=== PATIENT | female | born 1995 | race Caucasian/White ===

== ENCOUNTER 2016-11-30 12:18 | Emergency (ER) | payer OTHER ==
[~2016-11-30] VITALS: Ht 170.2 cm; Wt 95.7 kg
[~2016-11-30 12:18] MED LIST: ATIVAN0.5 MG PO; Augmentin PO; BACTRIM,SEPT1 TABLET PO; CIPRO250 MG PO; CIPRO500 MG PO; CITALOPRAM HBR20 MG PO; DICLEGIS DR 101 EACH PO; K-DUR20 MEQ PO; KEFLEX500 MG PO; LABETALOL HCL200 MG PO; MACROBID100 MG PO; METOCLOPRAM5 MG/1 M1 PO; NAPROSYN500 MG PO; NEXIUM20 MG PO; NEXIUM40 MG PO; NORCO 5/3251 TABLET PO; PERCOCET 5/31 TABLET PO; PHENERGAN25 MG PR; PREDNISONE20 MG PO; PRENATAL TABLE1 EAC3 PO; PROMETHAZINE HC25 M1 PO; PROTONIX IV40 MG PO; PYRIDIUM200 MG PO; RANITIDINE HCL150 MG PO; REGLAN10 MG PO; REGLAN5 MG PO; ZITHROMAX Z-PA250 MG PO; ZOFRAN ODT4 MG PO; ZOFRAN ODT8 MG PO; ZOFRAN4 MG PO; ZOFRAN8 MG PO
[2016-11-30 13:22] LABS: HEMATOCRIT 43.9 % (36.0-46.0); MCH 29.5 PG (29.0-34.0); MCHC 33.9 G/DL (30.0-36.0); MCV 86.9 FL (83-99); MEAN PLAT.VOLUME 9.3 uM^3 (9.5-12.4); PLATELET COUNT 362 K/uL (156-360); RBC DIS.WIDTH-CV 15.1 % (11.8-14.6); RBC DIS.WIDTH-SD 48.1 % (39-53); RED BLOOD COUNT 5.05 M/uL (3.80-5.20); WHITE BLOOD COUNT 14.3 K/uL (4.1-10.2)
[2016-11-30 13:40] LABS: CHLORIDE 99 mEq/L (99-109); POTASSIUM 3.3 mEq/L (3.7-5.4); SODIUM 141 mEq/L (136-147)
[2016-11-30 13:42] LABS: GLUCOSE 112 mg/dL (70-99)
[2016-11-30 13:43] LABS: ANION GAP 12 MEQ/L (2-14)
[2016-11-30 13:44] LABS: TOTAL BILIRUBIN 0.6 mg/dL (0.0-1.0)
[2016-11-30 13:45] LABS: ALKALINE PHOSPHATASE 50 IU/L (3-129)
[2016-11-30 13:46] LABS: GFR ESTIMATE (CALCULATED) > 59 mL/min/
[2016-11-30 13:47] LABS: UREA NITROGEN (BUN) 9 mg/dL (9-23)
[2016-11-30 13:56] LABS: QUANTITATIVE HCG < 4.0 MIU/ML
[2016-11-30] MEDS ORDERED: BENTYL20 MG PO (16:37)
[2016-11-30] MEDS ORDERED: ZOFRAN ODT4 MG PO (16:37)
[2016-11-30 16:52] LABS: ADD MIUA? YES; BILIRUBIN NEGATIVE; BLOOD MODERATE; COLOR STRAW ((YELLOW)); GLUCOSE (STRIP) NEGATIVE; KETONES NEGATIVE; LEUKOCYTES SMALL; NITRITE NEGATIVE; PROTEIN (STRIP) NEGATIVE; SPECIFIC GRAVITY 1.044 (1.000-1.030); UROBILINOGEN 0.2 MG/DL (0.2-1.0)
[2016-11-30 16:57] LABS: BACTERIA RARE /HPF; EPITHELIAL CELLS RARE /HPF; MUCUS NONE SEEN /LPF; RED BLOOD CELLS 0-5 /HPF (0-5); UCUL ADDED? NO; WHITE BLOOD CELLS 0-5 /HPF (0-5)
[2016-11-30 17:02] LABS: CASTS NONE SEEN /LPF; CRYSTALS NONE SEEN
[2016-11-30 18:19] VITALS: BP 111/79
== END 2016-11-30 18:20 | disposition home or self-care (01) ==
LOC: EME 12:18
DX: R10.13 Epigastric pain (principal); R11.10 Vomiting, unspecified; R19.7 Diarrhea, unspecified; F17.200 Nicotine dependence, unspecified, uncomplicated; Z88.8 Allergy status to other drugs, medicaments and biological substances; K21.9 Gastro-esophageal reflux disease without esophagitis
CPT/HCPCS: 74177; 80053; 81003; 84702; 85027; 99281; 99285; J2270; J2405; J7030

== ENCOUNTER 2016-12-27 17:29 | Emergency (ER) | payer OTHER ==
[~2016-12-27] VITALS: Ht 167.6 cm; Wt 90.9 kg
[~2016-12-27 17:29] MED LIST changes: +BENTYL20 MG PO
[2016-12-27 18:29] LABS: EOSINOPHIL (%) 0.1 % (0-5); HEMATOCRIT 43.9 % (36.0-46.0); IMMATURE GRANULOCYTE (%) 0.4 % (0.0-0.7); IMMATURE GRANULOCYTE COUNT 0.7 K/uL; LYMPHOCYTE COUNT 1.4 K/uL (1.0-2.8); MCH 29.1 PG (29.0-34.0); MEAN PLAT.VOLUME 9.1 uM^3 (9.5-12.4); MONOCYTE (%) 3.3 % (3-12); MONOCYTE COUNT 0.6 K/uL (0-0.8); NEUTROPHIL (%) 89.1 % (45-76); NEUTROPHIL COUNT 17.6 K/uL (1.8-6.4); PLATELET COUNT 311 K/uL (156-360); RBC DIS.WIDTH-CV 15.2 % (11.8-14.6); RBC DIS.WIDTH-SD 48.1 % (39-53); RED BLOOD COUNT 4.99 M/uL (3.80-5.20); WHITE BLOOD COUNT 19.7 K/uL (4.1-10.2)
[2016-12-27 18:40] LABS: CHLORIDE 106 mEq/L (99-109); POTASSIUM 3.9 mEq/L (3.7-5.4); SODIUM 139 mEq/L (136-147)
[2016-12-27 18:42] LABS: GLUCOSE 121 mg/dL (70-99)
[2016-12-27 18:43] LABS: ANION GAP 10 MEQ/L (2-14)
[2016-12-27 18:44] LABS: TOTAL BILIRUBIN 0.4 mg/dL (0.0-1.0)
[2016-12-27 18:45] LABS: ALKALINE PHOSPHATASE 58 IU/L (3-129)
[2016-12-27 18:46] LABS: GFR ESTIMATE (CALCULATED) > 59 mL/min/
[2016-12-27 18:47] LABS: UREA NITROGEN (BUN) 11 mg/dL (9-23)
[2016-12-27 18:49] LABS: LIPASE 22 U/L (1.0-51.0)
[2016-12-27 18:56] LABS: QUANTITATIVE HCG < 4.0 MIU/ML
[2016-12-27 19:50] LABS: ADD MIUA? YES; BILIRUBIN NEGATIVE; BLOOD MODERATE; COLOR YELLOW ((YELLOW)); GLUCOSE (STRIP) NEGATIVE; KETONES NEGATIVE; LEUKOCYTES NEGATIVE; NITRITE POSITIVE; PROTEIN (STRIP) 30; SPECIFIC GRAVITY 1.016 (1.000-1.030); UROBILINOGEN 0.2 MG/DL (0.2-1.0)
[2016-12-27 19:57] LABS: AMPHETAMINE NEGATIVE (500 ng/mL); BARBITURATES NEGATIVE (200 ng/mL); BENZODIAZEPINES NEGATIVE (150 ng/mL); COCAINE NEGATIVE (150 ng/mL); INTERNAL CONTROLS VALID? YES; METHADONE NEGATIVE (200 ng/mL); METHAMPHETAMINE NEGATIVE (500 ng/mL); OPIATES (MORPHINE) NEGATIVE (100 ng/mL); OXYCODONE NEGATIVE (100 ng/mL); PHENCYCLIDINE NEGATIVE (25 ng/mL); PROPOXYPHENE NEGATIVE (300 ng/mL); THC CANNABINOIDS NEGATIVE (50 ng/mL); TRICYCLIC ANTIDEPRESSANTS NEGATIVE (300 ng/mL)
[2016-12-27 20:06] LABS: BACTERIA RARE /HPF; EPITHELIAL CELLS RARE /HPF; MUCUS NONE SEEN /LPF; WHITE BLOOD CELLS 0-5 /HPF (0-5)
[2016-12-27] MEDS ORDERED: PROMETHAZINE HC25 M1 PO (22:46)
[2016-12-27] MEDS ORDERED: BENTYL20 MG PO (22:46)
[2016-12-27] MEDS ORDERED: KEFLEX500 MG PO (22:46)
[2016-12-27] MEDS ORDERED: PHENERGAN25 MG PR (22:46)
[2016-12-27] MEDS ORDERED: NEXIUM40 MG PO (22:47)
[2016-12-27 23:06] VITALS: BP 98/75
== END 2016-12-27 23:07 | disposition home or self-care (01) ==
LOC: EME → EDBD 17:29 → EME 23:07
PROVIDERS: Physician Assistant
DX: N39.0 Urinary tract infection, site not specified (principal); K21.9 Gastro-esophageal reflux disease without esophagitis; R11.2 Nausea with vomiting, unspecified; R10.9 Unspecified abdominal pain; G89.29 Other chronic pain; E86.0 Dehydration; F17.200 Nicotine dependence, unspecified, uncomplicated
CPT/HCPCS: 74022; 80053; 81003; 83690; 84702; 85025; 99281; 99285; J0500; J0696; J1200; J1885; J2405; J2765; J7030; J7050

== ENCOUNTER 2017-01-05 17:26 | Emergency (ER) | payer OTHER ==
[~2017-01-05] VITALS: Ht 170.2 cm; Wt 98.2 kg
[2017-01-05 18:14] LABS: HEMATOCRIT 44.3 % (36.0-46.0); MCH 28.7 PG (29.0-34.0); MCHC 32.7 G/DL (30.0-36.0); MCV 87.7 FL (83-99); MEAN PLAT.VOLUME 9.2 uM^3 (9.5-12.4); PLATELET COUNT 387 K/uL (156-360); RBC DIS.WIDTH-CV 14.6 % (11.8-14.6); RBC DIS.WIDTH-SD 46.6 % (39-53); RED BLOOD COUNT 5.05 M/uL (3.80-5.20); WHITE BLOOD COUNT 16.7 K/uL (4.1-10.2)
[2017-01-05 18:22] LABS: CHLORIDE 102 mEq/L (99-109); POTASSIUM 3.7 mEq/L (3.7-5.4)
[2017-01-05 18:23] LABS: SODIUM 139 mEq/L (136-147)
[2017-01-05 18:25] LABS: GLUCOSE 119 mg/dL (70-99)
[2017-01-05 18:26] LABS: ANION GAP 14 MEQ/L (2-14)
[2017-01-05 18:27] LABS: TOTAL BILIRUBIN 0.6 mg/dL (0.0-1.0)
[2017-01-05 18:28] LABS: ALKALINE PHOSPHATASE 54 IU/L (3-129); GFR ESTIMATE (CALCULATED) > 59 mL/min/
[2017-01-05 18:30] LABS: UREA NITROGEN (BUN) 11 mg/dL (9-23)
[2017-01-05 18:32] LABS: LIPASE 46 U/L (1.0-51.0)
[2017-01-05 20:11] LABS: ADD MIUA? YES; BILIRUBIN NEGATIVE; BLOOD SMALL; COLOR STRAW ((YELLOW)); GLUCOSE (STRIP) NEGATIVE; KETONES 20; LEUKOCYTES SMALL; NITRITE NEGATIVE; PROTEIN (STRIP) NEGATIVE; SPECIFIC GRAVITY 1.005 (1.000-1.030); UROBILINOGEN 0.2 MG/DL (0.2-1.0)
[2017-01-05 20:21] LABS: BACTERIA RARE /HPF; EPITHELIAL CELLS RARE /HPF; MUCUS NONE SEEN /LPF; RED BLOOD CELLS 0-5 /HPF (0-5); UCUL ADDED? NO
[2017-01-05 20:30] LABS: AMPHETAMINE NEGATIVE (500 ng/mL); BARBITURATES NEGATIVE (200 ng/mL); BENZODIAZEPINES NEGATIVE (150 ng/mL); COCAINE NEGATIVE (150 ng/mL); INTERNAL CONTROLS VALID? YES; METHADONE NEGATIVE (200 ng/mL); METHAMPHETAMINE NEGATIVE (500 ng/mL); OPIATES (MORPHINE) NEGATIVE (100 ng/mL); OXYCODONE NEGATIVE (100 ng/mL); PHENCYCLIDINE NEGATIVE (25 ng/mL); PROPOXYPHENE NEGATIVE (300 ng/mL); THC CANNABINOIDS NEGATIVE (50 ng/mL); TRICYCLIC ANTIDEPRESSANTS NEGATIVE (300 ng/mL)
[2017-01-05] MEDS ORDERED: BACTRIM,SEPT1 TABLET PO (20:46)
[2017-01-05] MEDS ORDERED: ZOFRAN4 MG PO (20:46)
[2017-01-05 21:21] VITALS: BP 128/84
== END 2017-01-05 21:23 | disposition home or self-care (01) ==
LOC: EME 17:26
PROVIDERS: Emergency Medicine
DX: N39.0 Urinary tract infection, site not specified (principal); R10.9 Unspecified abdominal pain; I10 Essential (primary) hypertension; K21.9 Gastro-esophageal reflux disease without esophagitis; F17.200 Nicotine dependence, unspecified, uncomplicated
CPT/HCPCS: 76705; 80053; 81003; 83690; 85027; 99281; 99285; J1630; J2405; J7030

== ENCOUNTER 2017-02-16 06:28 | Emergency (ER) | payer OTHER ==
[~2017-02-16] VITALS: Ht 167.6 cm; Wt 99.8 kg
[2017-02-16 07:25] LABS: BASOPHIL COUNT 0.1 K/uL (0-0.1); EOSINOPHIL (%) 3.3 % (0-5); EOSINOPHIL COUNT 0.5 K/uL (0-0.3); HEMATOCRIT 45.8 % (36.0-46.0); IMMATURE GRANULOCYTE (%) 0.5 % (0.0-0.7); IMMATURE GRANULOCYTE COUNT 0.1 K/uL; INSTRUMENT ABS NEUTROPHIL CT 11.4 K/uL; LYMPHOCYTE COUNT 2.8 K/uL (1.0-2.8); MCH 28.5 PG (29.0-34.0); MCHC 32.1 G/DL (30.0-36.0); MCV 88.9 FL (83-99); MEAN PLAT.VOLUME 9.3 uM^3 (9.5-12.4); MONOCYTE (%) 6.4 % (3-12); NEUTROPHIL (%) 71.7 % (45-76); NEUTROPHIL COUNT 11.4 K/uL (1.8-6.4); PLATELET COUNT 354 K/uL (156-360); RBC DIS.WIDTH-SD 48.9 % (39-53); RED BLOOD COUNT 5.15 M/uL (3.80-5.20); WHITE BLOOD COUNT 15.9 K/uL (4.1-10.2)
[2017-02-16 07:56] LABS: ANION GAP 9 MEQ/L (2-14); CHLORIDE 104 MEQ/L (99-109); SAMPLE HEMOLYSIS CHECK 0; SAMPLE ICTERIC CHECK 0; SAMPLE LIPEMIA CHECK 0; SODIUM 137 MEQ/L (136-147); TOTAL BILIRUBIN 0.3 MG/DL (0.0-1.0)
[2017-02-16 08:02] LABS: ALKALINE PHOSPHATASE 48 IU/L (3-129); GFR ESTIMATE (CALCULATED) > 59 mL/min/; GLUCOSE 118 mg/dL (70-99); UREA NITROGEN (BUN) 9 mg/dL (9-23)
[2017-02-16 08:14] LABS: ADD MIUA? YES; BILIRUBIN NEGATIVE; BLOOD SMALL; COLOR STRAW ((YELLOW)); GLUCOSE (STRIP) NEGATIVE; KETONES 5; LEUKOCYTES NEGATIVE; NITRITE NEGATIVE; PROTEIN (STRIP) NEGATIVE; UROBILINOGEN 0.2 MG/DL (0.2-1.0)
[2017-02-16 08:18] LABS: BACTERIA RARE /HPF; EPITHELIAL CELLS RARE /HPF; MUCUS TRACE /LPF; RED BLOOD CELLS 0-5 /HPF (0-5); UCUL ADDED? NO; WHITE BLOOD CELLS 0-5 /HPF (0-5)
[2017-02-16 08:20] LABS: INTERNAL CONTROL VALID? YES
[2017-02-16] MEDS ORDERED: CIPRO500 MG PO (09:27)
[2017-02-16] MEDS ORDERED: TYLENOL REGULA325 MG PO (09:36)
[2017-02-16] MEDS ORDERED: ZOFRAN ODT4 MG PO (09:36)
[2017-02-16 09:53] VITALS: BP 172/104
== END 2017-02-16 09:56 | disposition home or self-care (01) ==
LOC: EME → EDBD 06:28 → EME 09:56
PROVIDERS: Emergency Medicine
DX: N39.0 Urinary tract infection, site not specified (principal); D72.829 Elevated white blood cell count, unspecified; R11.2 Nausea with vomiting, unspecified; Z59.0 Homelessness; F17.200 Nicotine dependence, unspecified, uncomplicated
CPT/HCPCS: 74176; 80053; 81003; 83605; 84703; 85025; 99281; 99285; J2270; J2405; J2765; J7030

== ENCOUNTER 2017-03-22 06:24 | Emergency (ER) | payer OTHER ==
[~2017-03-22] VITALS: Ht 170.2 cm; Wt 89.4 kg
[~2017-03-22 06:24] MED LIST changes: +TYLENOL REGULA325 MG PO
[2017-03-22 07:39] LABS: EOSINOPHIL (%) 0.4 % (0-5); EOSINOPHIL COUNT 0.1 K/uL (0-0.3); HEMATOCRIT 46.9 % (36.0-46.0); IMMATURE GRANULOCYTE (%) 0.4 % (0.0-0.7); IMMATURE GRANULOCYTE COUNT 0.1 K/uL; INSTRUMENT ABS NEUTROPHIL CT 10.9 K/uL; LYMPHOCYTE COUNT 2.1 K/uL (1.0-2.8); MCH 28.1 PG (29.0-34.0); MCHC 33.5 G/DL (30.0-36.0); MCV 84.1 FL (83-99); MEAN PLAT.VOLUME 10.3 uM^3 (9.5-12.4); MONOCYTE (%) 7.2 % (3-12); NEUTROPHIL (%) 77.3 % (45-76); NEUTROPHIL COUNT 10.9 K/uL (1.8-6.4); PLATELET COUNT 312 K/uL (156-360); RBC DIS.WIDTH-CV 14.8 % (11.8-14.6); RED BLOOD COUNT 5.58 M/uL (3.80-5.20); WHITE BLOOD COUNT 14.2 K/uL (4.1-10.2)
[2017-03-22 08:16] LABS: ADD MIUA? YES; BILIRUBIN NEGATIVE; BLOOD MODERATE; COLOR YELLOW ((YELLOW)); GLUCOSE (STRIP) NEGATIVE; KETONES 80; LEUKOCYTES SMALL; NITRITE NEGATIVE; PROTEIN (STRIP) 30; SPECIFIC GRAVITY 1.014 (1.000-1.030); UROBILINOGEN 0.2 MG/DL (0.2-1.0)
[2017-03-22 08:19] LABS: QUANTITATIVE HCG < 4.0 MIU/ML
[2017-03-22 08:25] LABS: BACTERIA RARE /HPF; CALCIUM OXALATE CRYSTALS 2+ /HPF; EPITHELIAL CELLS 2+ /HPF; MUCUS TRACE /LPF
[2017-03-22 08:30] LABS: ANION GAP 16 MEQ/L (2-14); CHLORIDE 93 MEQ/L (99-109); POTASSIUM 3.5 MEQ/L (3.7-5.4); SAMPLE HEMOLYSIS CHECK 2; SAMPLE ICTERIC CHECK 0; SAMPLE LIPEMIA CHECK 0; SODIUM 135 MEQ/L (136-147); TOTAL BILIRUBIN 0.8 MG/DL (0.0-1.0)
[2017-03-22 08:35] LABS: ALKALINE PHOSPHATASE 48 IU/L (3-129); GFR ESTIMATE (CALCULATED) > 59 mL/min/; GLUCOSE 96 mg/dL (70-99); UREA NITROGEN (BUN) 13 mg/dL (9-23)
[2017-03-22] MEDS ORDERED: BENTYL20 MG PO (10:22)
[2017-03-22] MEDS ORDERED: ZOFRAN ODT4 MG PO (10:22)
[2017-03-22 10:35] VITALS: BP 107/78
== END 2017-03-22 10:36 | disposition home or self-care (01) ==
LOC: EME → EDBD 06:24 → EME 06:24
PROVIDERS: Emergency Medicine
DX: R11.2 Nausea with vomiting, unspecified (principal); N39.0 Urinary tract infection, site not specified; R53.1 Weakness; K59.00 Constipation, unspecified; F17.200 Nicotine dependence, unspecified, uncomplicated
CPT/HCPCS: 80053; 81003; 84702; 85025; 99281; 99285; J1885; J2405; J7030

== ENCOUNTER 2017-04-04 13:11 | Emergency (ER) | payer OTHER ==
[~2017-04-04] VITALS: Ht 170.2 cm; Wt 89.7 kg
[2017-04-04 14:59] LABS: HEMATOCRIT 48.5 % (36.0-46.0); MCH 28.2 PG (29.0-34.0); MCHC 32.4 G/DL (30.0-36.0); MCV 87.2 FL (83-99); MEAN PLAT.VOLUME 9.7 uM^3 (9.5-12.4); PLATELET COUNT 366 K/uL (156-360); RBC DIS.WIDTH-CV 15.9 % (11.8-14.6); RBC DIS.WIDTH-SD 50.1 % (39-53); RED BLOOD COUNT 5.56 M/uL (3.80-5.20); WHITE BLOOD COUNT 12.6 K/uL (4.1-10.2)
[2017-04-04 15:14] LABS: CHLORIDE 102 mEq/L (99-109); POTASSIUM 3.5 mEq/L (3.7-5.4); SODIUM 139 mEq/L (136-147)
[2017-04-04 15:16] LABS: GLUCOSE 103 mg/dL (70-99)
[2017-04-04 15:17] LABS: ANION GAP 13 MEQ/L (2-14)
[2017-04-04 15:18] LABS: TOTAL BILIRUBIN 0.6 mg/dL (0.0-1.0)
[2017-04-04 15:19] LABS: ALKALINE PHOSPHATASE 56 IU/L (3-129)
[2017-04-04 15:20] LABS: GFR ESTIMATE (CALCULATED) > 59 mL/min/
[2017-04-04 15:21] LABS: UREA NITROGEN (BUN) 8 mg/dL (9-23)
[2017-04-04 15:31] LABS: QUANTITATIVE HCG < 4.0 MIU/ML
[2017-04-04 16:10] LABS: ADD MIUA? YES; BILIRUBIN NEGATIVE; BLOOD MODERATE; COLOR YELLOW ((YELLOW)); GLUCOSE (STRIP) NEGATIVE; KETONES NEGATIVE; LEUKOCYTES MODERATE; NITRITE NEGATIVE; PROTEIN (STRIP) 30; UROBILINOGEN 0.2 MG/DL (0.2-1.0)
[2017-04-04 16:25] LABS: BACTERIA RARE /HPF; EPITHELIAL CELLS RARE /HPF; MUCUS TRACE /LPF; RED BLOOD CELLS 0-5 /HPF (0-5); UCUL ADDED? NO
[2017-04-04 17:48] LABS: LIPASE 15 U/L (1.0-51.0)
[2017-04-04] MEDS ORDERED: KEFLEX500 MG PO (18:00)
[2017-04-04] MEDS ORDERED: ZOFRAN ODT4 MG PO (18:47)
[2017-04-04 19:21] VITALS: BP 141/101
== END 2017-04-04 19:22 | disposition home or self-care (01) ==
LOC: EME 13:11
DX: N39.0 Urinary tract infection, site not specified (principal); R11.2 Nausea with vomiting, unspecified; Z59.0 Homelessness; J45.909 Unspecified asthma, uncomplicated; I10 Essential (primary) hypertension; K21.9 Gastro-esophageal reflux disease without esophagitis; F17.200 Nicotine dependence, unspecified, uncomplicated
CPT/HCPCS: 80053; 81003; 83690; 84702; 85027; 99281; 99284

== ENCOUNTER 2017-04-06 11:13 | Emergency (ER) | payer OTHER ==
[~2017-04-06] VITALS: Ht 170.2 cm; Wt 92.1 kg
[2017-04-06 11:52] LABS: EOSINOPHIL (%) 0.9 % (0-5); EOSINOPHIL COUNT 0.1 K/uL (0-0.3); HEMATOCRIT 47.9 % (36.0-46.0); IMMATURE GRANULOCYTE (%) 0.5 % (0.0-0.7); IMMATURE GRANULOCYTE COUNT 0.1 K/uL; INSTRUMENT ABS NEUTROPHIL CT 8.4 K/uL; LYMPHOCYTE COUNT 1.5 K/uL (1.0-2.8); MCH 28.1 PG (29.0-34.0); MCHC 32.6 G/DL (30.0-36.0); MCV 86.3 FL (83-99); MEAN PLAT.VOLUME 9.9 uM^3 (9.5-12.4); MONOCYTE (%) 7.1 % (3-12); MONOCYTE COUNT 0.8 K/uL (0-0.8); NEUTROPHIL (%) 77.4 % (45-76); NEUTROPHIL COUNT 8.4 K/uL (1.8-6.4); PLATELET COUNT 299 K/uL (156-360); RBC DIS.WIDTH-CV 15.6 % (11.8-14.6); RBC DIS.WIDTH-SD 48.6 % (39-53); RED BLOOD COUNT 5.55 M/uL (3.80-5.20); WHITE BLOOD COUNT 10.8 K/uL (4.1-10.2)
[2017-04-06 12:03] LABS: CHLORIDE 101 mEq/L (99-109); POTASSIUM 3.3 mEq/L (3.7-5.4); SODIUM 133 mEq/L (136-147)
[2017-04-06 12:05] LABS: GLUCOSE 96 mg/dL (70-99)
[2017-04-06 12:06] LABS: ANION GAP 12 MEQ/L (2-14)
[2017-04-06 12:09] LABS: GFR ESTIMATE (CALCULATED) > 59 mL/min/
[2017-04-06 12:10] LABS: UREA NITROGEN (BUN) 12 mg/dL (9-23)
[2017-04-06] MEDS ORDERED: ZOFRAN ODT4 MG PO (14:41)
[2017-04-06] MEDS ORDERED: NORVASC5 MG PO (14:41)
[2017-04-06 15:12] VITALS: BP 122/67
== END 2017-04-06 15:13 | disposition home or self-care (01) ==
LOC: EME 11:13
PROVIDERS: Emergency Medicine
DX: E86.0 Dehydration (principal); R11.2 Nausea with vomiting, unspecified; I10 Essential (primary) hypertension; K52.9 Noninfective gastroenteritis and colitis, unspecified; K59.00 Constipation, unspecified; Z59.0 Homelessness; F17.200 Nicotine dependence, unspecified, uncomplicated
CPT/HCPCS: 80048; 85025; 99281; 99285; J2405; J7030

== ENCOUNTER 2017-06-14 12:34 | Emergency (ER) | payer OTHER ==
[~2017-06-14] VITALS: Ht 170.2 cm; Wt 87.8 kg
[~2017-06-14 12:34] MED LIST changes: +NORVASC5 MG PO
[2017-06-14 13:00] LABS: CHLORIDE 107 mEq/L (99-109); EOSINOPHIL (%) 0.9 % (0-5); EOSINOPHIL COUNT 0.2 K/uL (0-0.3); HEMATOCRIT 45.6 % (36.0-46.0); IMMATURE GRANULOCYTE (%) 0.5 % (0.0-0.7); IMMATURE GRANULOCYTE COUNT 0.1 K/uL; INSTRUMENT ABS NEUTROPHIL CT 13.9 K/uL; LYMPHOCYTE COUNT 2.1 K/uL (1.0-2.8); MCH 28.7 PG (29.0-34.0); MCHC 33.1 G/DL (30.0-36.0); MCV 86.7 FL (83-99); MEAN PLAT.VOLUME 9.7 uM^3 (9.5-12.4); MONOCYTE (%) 4.6 % (3-12); MONOCYTE COUNT 0.8 K/uL (0-0.8); NEUTROPHIL (%) 81.6 % (45-76); NEUTROPHIL COUNT 13.9 K/uL (1.8-6.4); PLATELET COUNT 377 K/uL (156-360); RBC DIS.WIDTH-CV 15.2 % (11.8-14.6); RBC DIS.WIDTH-SD 47.9 % (39-53); RED BLOOD COUNT 5.26 M/uL (3.80-5.20); SODIUM 138 mEq/L (136-147)
[2017-06-14 13:02] LABS: GLUCOSE 153 mg/dL (70-99)
[2017-06-14 13:03] LABS: ANION GAP 14 MEQ/L (2-14)
[2017-06-14 13:04] LABS: TOTAL BILIRUBIN 0.5 mg/dL (0.0-1.0)
[2017-06-14 13:06] LABS: ALKALINE PHOSPHATASE 65 IU/L (3-129); GFR ESTIMATE (CALCULATED) > 59 mL/min/
[2017-06-14 13:07] LABS: UREA NITROGEN (BUN) 14 mg/dL (9-23)
[2017-06-14 13:09] LABS: LIPASE 26 U/L (1.0-51.0)
[2017-06-14 13:15] LABS: QUANTITATIVE HCG < 4.0 MIU/ML
[2017-06-14] MEDS ORDERED: ZOFRAN4 MG PO (15:06)
[2017-06-14] MEDS ORDERED: BENTYL20 MG PO (15:06)
[2017-06-14 15:16] VITALS: BP 185/103
== END 2017-06-14 15:19 | disposition home or self-care (01) ==
LOC: EME 12:34
PROVIDERS: Emergency Medicine
DX: R10.84 Generalized abdominal pain (principal); R11.2 Nausea with vomiting, unspecified; D72.829 Elevated white blood cell count, unspecified; K21.9 Gastro-esophageal reflux disease without esophagitis; J45.909 Unspecified asthma, uncomplicated; I10 Essential (primary) hypertension; F17.200 Nicotine dependence, unspecified, uncomplicated
CPT/HCPCS: 80053; 83690; 84702; 85025; 99281; 99285; J1885; J2405; J2765; J7030

== ENCOUNTER 2017-07-09 06:31 | Emergency (ER) | payer OTHER ==
[~2017-07-09] VITALS: Ht 170.2 cm; Wt 89.1 kg
[2017-07-09 06:54] LABS: HEMATOCRIT 44.2 % (36.0-46.0); MCH 28.9 PG (29.0-34.0); MCHC 32.8 G/DL (30.0-36.0); MEAN PLAT.VOLUME 9.4 uM^3 (9.5-12.4); PLATELET COUNT 378 K/uL (156-360); RBC DIS.WIDTH-SD 47.8 % (39-53); RED BLOOD COUNT 5.02 M/uL (3.80-5.20); WHITE BLOOD COUNT 17.7 K/uL (4.1-10.2)
[2017-07-09 07:12] LABS: ADD MIUA? YES; BILIRUBIN NEGATIVE; BLOOD SMALL; COLOR YELLOW ((YELLOW)); GLUCOSE (STRIP) NEGATIVE; KETONES NEGATIVE; LEUKOCYTES SMALL; NITRITE NEGATIVE; PROTEIN (STRIP) 30; SPECIFIC GRAVITY 1.021 (1.000-1.030); UROBILINOGEN 0.2 MG/DL (0.2-1.0)
[2017-07-09 07:20] LABS: ANION GAP 11 MEQ/L (2-14); CHLORIDE 104 MEQ/L (99-109); POTASSIUM 3.6 MEQ/L (3.7-5.4); SAMPLE HEMOLYSIS CHECK 0; SAMPLE ICTERIC CHECK 0; SAMPLE LIPEMIA CHECK 0; SODIUM 137 MEQ/L (136-147); TOTAL BILIRUBIN 0.4 MG/DL (0.0-1.0)
[2017-07-09 07:25] LABS: ALKALINE PHOSPHATASE 52 IU/L (3-129); GFR ESTIMATE (CALCULATED) > 59 mL/min/; GLUCOSE 144 mg/dL (70-99); UREA NITROGEN (BUN) 10 mg/dL (9-23)
[2017-07-09 07:42] LABS: BACTERIA 3+ /HPF; CASTS NONE SEEN /LPF; CRYSTALS NONE SEEN; EPITHELIAL CELLS 1+ /HPF; MUCUS 1+ /LPF; RED BLOOD CELLS 0-5 /HPF (0-5); UCUL ADDED? YES; WHITE BLOOD CELLS 0-5 /HPF (0-5)
[2017-07-09 07:43] LABS: QUANTITATIVE HCG < 4.0 MIU/ML
[2017-07-09] MEDS ORDERED: ZOFRAN4 MG PO (14:10)
[2017-07-09 14:32] VITALS: BP 142/96
[2017-07-10] MEDS ORDERED: REGLAN10 MG PO (13:14)
== END 2017-07-09 14:33 | disposition home or self-care (01) ==
LOC: EME → EDBD 06:31 → EME 14:33
PROVIDERS: Nurse Practitioner Family
DX: N83.202 Unspecified ovarian cyst, left side (principal); R11.2 Nausea with vomiting, unspecified; I10 Essential (primary) hypertension; T46.5X6A Underdosing of other antihypertensive drugs, initial encounter; Z91.128 Patient's intentional underdosing of medication regimen for other reason; F17.200 Nicotine dependence, unspecified, uncomplicated
CPT/HCPCS: 74177; 76856; 80053; 81003; 84702; 85027; 87086; 99281; 99285; C9113; J2270; J2405; J2765; J7030

== ENCOUNTER 2017-07-10 09:01 | Emergency (ER) | payer OTHER ==
[~2017-07-10] VITALS: Ht 170.2 cm; Wt 87.1 kg
[2017-07-10 09:42] LABS: HEMATOCRIT 44.8 % (36.0-46.0); MCHC 31.9 G/DL (30.0-36.0); MCV 90.9 FL (83-99); MEAN PLAT.VOLUME 9.5 uM^3 (9.5-12.4); PLATELET COUNT 317 K/uL (156-360); RBC DIS.WIDTH-SD 49.7 % (39-53); RED BLOOD COUNT 4.93 M/uL (3.80-5.20); WHITE BLOOD COUNT 10.3 K/uL (4.1-10.2)
[2017-07-10 09:54] LABS: CHLORIDE 108 mEq/L (99-109); SODIUM 140 mEq/L (136-147)
[2017-07-10 09:58] LABS: ANION GAP 11 MEQ/L (2-14)
[2017-07-10 09:59] LABS: TOTAL BILIRUBIN 0.5 mg/dL (0.0-1.0)
[2017-07-10 10:00] LABS: ALKALINE PHOSPHATASE 56 IU/L (3-129); GFR ESTIMATE (CALCULATED) > 59 mL/min/
[2017-07-10 10:01] LABS: UREA NITROGEN (BUN) 8 mg/dL (9-23)
[2017-07-10 10:06] LABS: GLUCOSE 101 mg/dL (70-99)
[2017-07-10 10:10] LABS: QUANTITATIVE HCG < 4.0 MIU/ML
[2017-07-10 11:51] LABS: ADD MIUA? YES; BILIRUBIN NEGATIVE; BLOOD MODERATE; COLOR YELLOW ((YELLOW)); GLUCOSE (STRIP) NEGATIVE; KETONES 5; LEUKOCYTES TRACE; NITRITE NEGATIVE; PROTEIN (STRIP) NEGATIVE; SPECIFIC GRAVITY 1.013 (1.000-1.030); UROBILINOGEN 0.2 MG/DL (0.2-1.0)
[2017-07-10 12:00] LABS: BACTERIA RARE /HPF; EPITHELIAL CELLS RARE /HPF; MUCUS TRACE /LPF; RED BLOOD CELLS 0-5 /HPF (0-5); UCUL ADDED? NO; WHITE BLOOD CELLS 0-5 /HPF (0-5)
[2017-07-10] MEDS ORDERED: REGLAN10 MG PO (13:14)
[2017-07-10 13:24] VITALS: BP 134/87
== END 2017-07-10 13:26 | disposition home or self-care (01) ==
LOC: EME 09:01
DX: L03.116 Cellulitis of left lower limb (principal); R11.10 Vomiting, unspecified; R10.9 Unspecified abdominal pain; K21.9 Gastro-esophageal reflux disease without esophagitis; I10 Essential (primary) hypertension; J45.909 Unspecified asthma, uncomplicated; F17.200 Nicotine dependence, unspecified, uncomplicated
CPT/HCPCS: 80053; 81003; 84702; 85027; 99281; 99284; J1200; J2765; J7030

== ENCOUNTER 2017-09-18 01:13 | Observation (INO) | payer OTHER ==
[~2017-09-18] VITALS: Ht 170.2 cm; Wt 91.6 kg
[2017-09-18 02:00] LABS: HEMATOCRIT 48.4 % (36.0-46.0); MCH 29.6 PG (29.0-34.0); MCHC 33.5 G/DL (30.0-36.0); MCV 88.3 FL (83-99); MEAN PLAT.VOLUME 9.6 uM^3 (9.5-12.4); PLATELET COUNT 433 K/uL (156-360); RBC DIS.WIDTH-CV 14.6 % (11.8-14.6); RBC DIS.WIDTH-SD 46.5 % (39-53); RED BLOOD COUNT 5.48 M/uL (3.80-5.20)
[2017-09-18 02:06] LABS: CHLORIDE 101 mEq/L (99-109); POTASSIUM 3.9 mEq/L (3.7-5.4); SODIUM 141 mEq/L (136-147)
[2017-09-18 02:08] LABS: GLUCOSE 115 mg/dL (70-99)
[2017-09-18 02:10] LABS: ANION GAP 14 MEQ/L (2-14); TOTAL BILIRUBIN 0.5 mg/dL (0.0-1.0)
[2017-09-18 02:12] LABS: ALKALINE PHOSPHATASE 67 IU/L (3-129); GFR ESTIMATE (CALCULATED) > 59 mL/min/
[2017-09-18 02:13] LABS: UREA NITROGEN (BUN) 12 mg/dL (9-23)
[2017-09-18 02:15] LABS: LIPASE 22 U/L (1.0-51.0)
[2017-09-18 02:22] LABS: QUANTITATIVE HCG < 4.0 MIU/ML
[2017-09-18 04:47] LABS: ADD MIUA? YES; BILIRUBIN NEGATIVE; BLOOD MODERATE; COLOR YELLOW ((YELLOW)); GLUCOSE (STRIP) NEGATIVE; KETONES NEGATIVE; LEUKOCYTES LARGE; NITRITE NEGATIVE; PROTEIN (STRIP) 100; SPECIFIC GRAVITY 1.016 (1.000-1.030)
[2017-09-18 05:15] LABS: BACTERIA RARE /HPF; EPITHELIAL CELLS 2+ /HPF; HYALINE CASTS 0-5 /LPF; MUCUS 2+ /LPF; RED BLOOD CELLS 15-20 /HPF (0-5); UCUL ADDED? YES; WHITE BLOOD CELLS 20-30 /HPF (0-5)
[2017-09-18 06:11] LABS: ADD MEDTOX COMMENT Y; AMPHETAMINE NEGATIVE (500 ng/mL); BARBITURATES NEGATIVE (200 ng/mL); BENZODIAZEPINES PRESUMPTIVE POSITIVE (150 ng/mL); COCAINE NEGATIVE (150 ng/mL); INTERNAL CONTROLS VALID? YES; METHADONE NEGATIVE (200 ng/mL); METHAMPHETAMINE NEGATIVE (500 ng/mL); OPIATES (MORPHINE) PRESUMPTIVE POSITIVE (100 ng/mL); OXYCODONE NEGATIVE (100 ng/mL); PHENCYCLIDINE NEGATIVE (25 ng/mL); PROPOXYPHENE NEGATIVE (300 ng/mL); THC CANNABINOIDS NEGATIVE (50 ng/mL); TRICYCLIC ANTIDEPRESSANTS NEGATIVE (300 ng/mL)
[2017-09-18 06:47] LABS: BENZODIAZEPINES QUANT VALUE 0 NG/ML; BENZODIAZEPINES, URINE SCREEN Negative (200 ng/mL)
[2017-09-18 07:43] VITALS: BP 137/78
[2017-09-18 09:25] LABS: HEMATOCRIT 44.4 % (36.0-46.0); MCH 29.3 PG (29.0-34.0); MCHC 32.9 G/DL (30.0-36.0); MCV 89.2 FL (83-99); RBC DIS.WIDTH-CV 14.8 % (11.8-14.6); RBC DIS.WIDTH-SD 47.5 % (39-53); RED BLOOD COUNT 4.98 M/uL (3.80-5.20); WHITE BLOOD COUNT 14.7 K/uL (4.1-10.2)
[2017-09-18 09:45] LABS: MEAN PLAT.VOLUME 9.6 uM^3 (9.5-12.4); PLAT.SUFFICIENCY ADEQUATE
[2017-09-18 09:50] LABS: PLATELET COUNT 303 K/uL (156-360)
[2017-09-18 11:44] VITALS: BP 124/81
[2017-09-18 15:51] VITALS: BP 133/71
== END 2017-09-18 16:38 | disposition left against medical advice (07) ==
LOC: EME 01:13 → EDOF 05:36 → ENRESERV 05:37 → 5WEST 07:14
PROVIDERS: Nurse Practitioner Family
DX: K92.2 Gastrointestinal hemorrhage, unspecified (principal); R11.2 Nausea with vomiting, unspecified; N39.0 Urinary tract infection, site not specified; K21.9 Gastro-esophageal reflux disease without esophagitis; E66.9 Obesity, unspecified; F41.9 Anxiety disorder, unspecified; F17.200 Nicotine dependence, unspecified, uncomplicated; F32.9 Major depressive disorder, single episode, unspecified; Z88.8 Allergy status to other drugs, medicaments and biological substances
CPT/HCPCS: 71260; 74177; 76705; 80053; 81003; 83690; 84702; 84999; 85025; 85027; 87086; 99281; 99285; C9113; G0378; J0696; J2270; J2405; J7030

== ENCOUNTER 2017-09-20 12:17 | Emergency (ER) | payer OTHER ==
[~2017-09-20] VITALS: Ht 170.2 cm; Wt 90.2 kg
[2017-09-20 13:29] LABS: HEMATOCRIT 45.9 % (36.0-46.0); MCH 29.2 PG (29.0-34.0); MCHC 32.7 G/DL (30.0-36.0); MCV 89.5 FL (83-99); MEAN PLAT.VOLUME 9.6 uM^3 (9.5-12.4); PLATELET COUNT 357 K/uL (156-360); RBC DIS.WIDTH-CV 14.7 % (11.8-14.6); RBC DIS.WIDTH-SD 47.6 % (39-53); RED BLOOD COUNT 5.13 M/uL (3.80-5.20); WHITE BLOOD COUNT 18.5 K/uL (4.1-10.2)
[2017-09-20 13:41] LABS: CHLORIDE 108 mEq/L (99-109); POTASSIUM 3.5 mEq/L (3.7-5.4); SODIUM 141 mEq/L (136-147)
[2017-09-20 13:43] LABS: GLUCOSE 109 mg/dL (70-99)
[2017-09-20 13:44] LABS: ANION GAP 11 MEQ/L (2-14)
[2017-09-20 13:45] LABS: TOTAL BILIRUBIN 0.5 mg/dL (0.0-1.0)
[2017-09-20 13:47] LABS: ALKALINE PHOSPHATASE 55 IU/L (3-129); GFR ESTIMATE (CALCULATED) > 59 mL/min/
[2017-09-20 13:48] LABS: UREA NITROGEN (BUN) 12 mg/dL (9-23)
[2017-09-20 13:50] LABS: LIPASE 27 U/L (1.0-51.0)
[2017-09-20 13:58] LABS: QUANTITATIVE HCG < 4.0 MIU/ML
[2017-09-20 15:04] LABS: ADD MIUA? YES; BILIRUBIN NEGATIVE; BLOOD MODERATE; COLOR YELLOW ((YELLOW)); GLUCOSE (STRIP) NEGATIVE; KETONES 5; LEUKOCYTES SMALL; NITRITE NEGATIVE; PROTEIN (STRIP) 30; SPECIFIC GRAVITY 1.025 (1.000-1.030)
[2017-09-20 15:27] LABS: BACTERIA 1+ /HPF; CALCIUM OXALATE CRYSTALS 1+ /HPF; CASTS NONE SEEN /LPF; CRYSTALS PRESENT; EPITHELIAL CELLS 2+ /HPF; MUCUS NONE SEEN /LPF; RED BLOOD CELLS 0-5 /HPF (0-5); UCUL ADDED? NO; WHITE BLOOD CELLS 0-5 /HPF (0-5)
[2017-09-20] MEDS ORDERED: ULTRAM50 MG PO (16:52)
[2017-09-20] MEDS ORDERED: BENTYL20 MG PO (16:52)
[2017-09-20] MEDS ORDERED: PHENERGAN25 MG PR (16:52)
[2017-09-20 17:41] VITALS: BP 159/109
== END 2017-09-20 17:45 | disposition home or self-care (01) ==
LOC: EME 12:17
DX: R11.2 Nausea with vomiting, unspecified (principal); R10.84 Generalized abdominal pain; D72.829 Elevated white blood cell count, unspecified; Z59.0 Homelessness; I10 Essential (primary) hypertension; J45.909 Unspecified asthma, uncomplicated; K21.9 Gastro-esophageal reflux disease without esophagitis; F41.9 Anxiety disorder, unspecified; F32.9 Major depressive disorder, single episode, unspecified; Z72.0 Tobacco use
CPT/HCPCS: 74022; 80053; 81003; 83690; 84702; 85027; 99281; 99284; J0500; J2550

== ENCOUNTER 2017-11-13 08:34 | Emergency (ER) | payer OTHER ==
[~2017-11-13] VITALS: Ht 170.2 cm; Wt 92.0 kg
[~2017-11-13 08:34] MED LIST changes: +ULTRAM50 MG PO
[2017-11-13 11:35] LABS: BASOPHIL (%) 0.2 % (0-1); EOSINOPHIL (%) 0.3 % (0-5); HEMATOCRIT 45.2 % (36.0-46.0); HEMOGLOBIN 15.2 G/DL (11.9-15.5); IMMATURE GRANULOCYTE (%) 0.4 % (0.0-0.7); LYMPHOCYTE (%) 15.6 % (15-42); LYMPHOCYTE COUNT 1.8 K/uL (1.0-2.8); MCH 29.6 PG (29.0-34.0); MCHC 33.6 G/DL (30.0-36.0); MCV 88.1 FL (83-99); MONOCYTE (%) 6.1 % (3-12); MONOCYTE COUNT 0.7 K/uL (0-0.8); NEUTROPHIL (%) 77.4 % (45-76); NEUTROPHIL COUNT 8.9 K/uL (1.8-6.4); PLATELET COUNT 367 K/uL (156-360); RBC DIS.WIDTH-CV 14.6 % (11.8-14.6); RBC DIS.WIDTH-SD 47.1 % (39-53); RED BLOOD COUNT 5.13 M/uL (3.80-5.20); WHITE BLOOD COUNT 11.5 K/uL (4.1-10.2)
[2017-11-13 11:45] LABS: ALBUMIN 4.5 g/dL (3.2-4.8)
[2017-11-13 11:46] LABS: CHLORIDE 99 mEq/L (99-109); INTER. NORMALIZED RATIO 1.2; POTASSIUM 3.7 mEq/L (3.7-5.4); SODIUM 136 mEq/L (136-147)
[2017-11-13 11:48] LABS: GLUCOSE 115 mg/dL (70-99); TOTAL PROTEIN 8.2 g/dL (6.4-8.3)
[2017-11-13 11:50] LABS: TOTAL BILIRUBIN 0.3 mg/dL (0.0-1.0)
[2017-11-13 11:51] LABS: ALKALINE PHOSPHATASE 53 IU/L (3-129)
[2017-11-13 11:52] LABS: CREATININE 0.7 mg/dL (0.6-1.3); GFR ESTIMATE (CALCULATED) > 59 mL/min/
[2017-11-13 11:53] LABS: AST (GOT) 17 IU/L (2-34); UREA NITROGEN (BUN) 11 mg/dL (9-23)
[2017-11-13 11:55] LABS: ALT (GPT) 21 IU/L (3-49); LIPASE 20 U/L (1.0-51.0)
[2017-11-13 12:01] LABS: QUANTITATIVE HCG < 4.0 MIU/ML
[2017-11-13] MEDS ORDERED: ZOFRAN4 MG PO (13:43)
[2017-11-13 13:56] VITALS: BP 148/87
== END 2017-11-13 13:57 | disposition home or self-care (01) ==
LOC: EME 08:34
PROVIDERS: Emergency Medicine
DX: R11.2 Nausea with vomiting, unspecified (principal); I10 Essential (primary) hypertension; K21.9 Gastro-esophageal reflux disease without esophagitis; J45.909 Unspecified asthma, uncomplicated; F17.200 Nicotine dependence, unspecified, uncomplicated; F32.9 Major depressive disorder, single episode, unspecified; F41.9 Anxiety disorder, unspecified
CPT/HCPCS: 80053; 83690; 84702; 85025; 85610; 99281; 99283; J2405; J7030; S0028

== ENCOUNTER 2017-12-18 20:48 | Emergency (ER) | payer OTHER ==
[~2017-12-18] VITALS: Ht 170.2 cm; Wt 95.0 kg
[2017-12-18 21:12] LABS: APPEARANCE SL.HAZY ((CLEAR)); BILIRUBIN NEGATIVE; BLOOD NEGATIVE; COLOR YELLOW ((YELLOW)); GLUCOSE (STRIP) NEGATIVE; KETONES 5; LEUKOCYTES MODERATE; NITRITE NEGATIVE; PROTEIN (STRIP) 30; SPECIFIC GRAVITY 1.025 (1.000-1.030); UROBILINOGEN 0.2 MG/DL (0.2-1.0)
[2017-12-18 21:25] LABS: BACTERIA RARE /HPF; EPITHELIAL CELLS 1+ /HPF; MUCUS 1+ /LPF; UCUL ADDED? YES; WHITE BLOOD CELLS 15-20 /HPF (0-5)
[2017-12-18 21:30] LABS: HEMATOCRIT 43.6 % (36.0-46.0); HEMOGLOBIN 14.4 G/DL (11.9-15.5); MCH 29.9 PG (29.0-34.0); MCV 90.6 FL (83-99); PLATELET COUNT 310 K/uL (156-360); RBC DIS.WIDTH-SD 49.8 % (39-53); RED BLOOD COUNT 4.81 M/uL (3.80-5.20); WHITE BLOOD COUNT 13.3 K/uL (4.1-10.2)
[2017-12-18 21:40] LABS: ALBUMIN 4.3 g/dL (3.2-4.8); CHLORIDE 106 mEq/L (99-109); POTASSIUM 3.8 mEq/L (3.7-5.4); SODIUM 140 mEq/L (136-147)
[2017-12-18 21:43] LABS: GLUCOSE 114 mg/dL (70-99); TOTAL PROTEIN 7.6 g/dL (6.4-8.3)
[2017-12-18 21:45] LABS: TOTAL BILIRUBIN 0.3 mg/dL (0.0-1.0)
[2017-12-18 21:46] LABS: ALKALINE PHOSPHATASE 65 IU/L (3-129); CREATININE 0.8 mg/dL (0.6-1.3); GFR ESTIMATE (CALCULATED) > 59 mL/min/
[2017-12-18 21:47] LABS: UREA NITROGEN (BUN) 10 mg/dL (9-23)
[2017-12-18 21:48] LABS: AST (GOT) 23 IU/L (2-34)
[2017-12-18 21:49] LABS: ALT (GPT) 21 IU/L (3-49)
[2017-12-18 21:57] LABS: QUANTITATIVE HCG < 4.0 MIU/ML
[2017-12-19] MEDS ORDERED: ULTRAM50 MG PO (00:16)
[2017-12-19] MEDS ORDERED: ZOFRAN ODT4 MG PO (00:16)
[2017-12-19] MEDS ORDERED: MACROBID100 MG PO (00:16)
[2017-12-19 00:42] VITALS: BP 143/94
== END 2017-12-19 00:42 | disposition home or self-care (01) ==
LOC: EME 20:48
DX: N39.0 Urinary tract infection, site not specified (principal); R11.2 Nausea with vomiting, unspecified; R07.89 Other chest pain; G89.29 Other chronic pain; K21.9 Gastro-esophageal reflux disease without esophagitis; F31.9 Bipolar disorder, unspecified; F41.9 Anxiety disorder, unspecified; F32.9 Major depressive disorder, single episode, unspecified; F17.200 Nicotine dependence, unspecified, uncomplicated
CPT/HCPCS: 80053; 81003; 84702; 85027; 87086; 99281; 99284; J2405; J7030

== ENCOUNTER 2018-01-14 11:39 | Emergency (ER) | payer OTHER ==
[~2018-01-14] VITALS: Ht 170.2 cm; Wt 91.5 kg
[2018-01-14 12:07] LABS: HEMATOCRIT 46.6 % (36.0-46.0); HEMOGLOBIN 15.8 G/DL (11.9-15.5); MCH 29.8 PG (29.0-34.0); MCHC 33.9 G/DL (30.0-36.0); MCV 87.8 FL (83-99); PLATELET COUNT 360 K/uL (156-360); RBC DIS.WIDTH-CV 14.6 % (11.8-14.6); RBC DIS.WIDTH-SD 47.1 % (39-53); RED BLOOD COUNT 5.31 M/uL (3.80-5.20); WHITE BLOOD COUNT 14.8 K/uL (4.1-10.2)
[2018-01-14 12:18] LABS: ALBUMIN 4.7 g/dL (3.2-4.8); CHLORIDE 100 mEq/L (99-109); POTASSIUM 3.7 mEq/L (3.7-5.4); SODIUM 137 mEq/L (136-147)
[2018-01-14 12:20] LABS: GLUCOSE 119 mg/dL (70-99); TOTAL PROTEIN 8.5 g/dL (6.4-8.3)
[2018-01-14 12:22] LABS: TOTAL BILIRUBIN 0.5 mg/dL (0.0-1.0)
[2018-01-14 12:24] LABS: ALKALINE PHOSPHATASE 59 IU/L (3-129); CREATININE 0.7 mg/dL (0.6-1.3); GFR ESTIMATE (CALCULATED) > 59 mL/min/
[2018-01-14 12:25] LABS: UREA NITROGEN (BUN) 11 mg/dL (9-23)
[2018-01-14 12:26] LABS: AST (GOT) 20 IU/L (2-34)
[2018-01-14 12:27] LABS: ALT (GPT) 26 IU/L (3-49)
[2018-01-14 12:32] LABS: QUANTITATIVE HCG < 4.0 MIU/ML
[2018-01-14 13:41] LABS: APPEARANCE SL.HAZY ((CLEAR)); BILIRUBIN NEGATIVE; BLOOD MODERATE; COLOR YELLOW ((YELLOW)); GLUCOSE (STRIP) NEGATIVE; KETONES NEGATIVE; LEUKOCYTES LARGE; NITRITE NEGATIVE; PROTEIN (STRIP) 30; SPECIFIC GRAVITY 1.008 (1.000-1.030); UROBILINOGEN 0.2 MG/DL (0.2-1.0)
[2018-01-14 13:43] LABS: LIPASE 18 U/L (1.0-51.0)
[2018-01-14 14:05] LABS: BACTERIA 2+ /HPF; CALCIUM OXALATE CRYSTALS 1+ /HPF; EPITHELIAL CELLS 1+ /HPF; MUCUS NONE SEEN /LPF; UCUL ADDED? YES
[2018-01-14 14:55] LABS: TROP-I INTERPRETATION NEGATIVE; TROPONIN-I < 0.01 ng/mL (0.0-0.30)
[2018-01-14] MEDS ORDERED: PROTONIX40 MG PO (18:46)
[2018-01-14] MEDS ORDERED: KEFLEX500 MG PO (18:46)
[2018-01-14] MEDS ORDERED: ZOFRAN4 MG SL (18:46)
[2018-01-14 19:45] VITALS: BP 128/80
== END 2018-01-14 20:26 | disposition home or self-care (01) ==
LOC: RME 11:39 → EME 11:39 → RME 20:26
DX: K92.0 Hematemesis (principal); N39.0 Urinary tract infection, site not specified; K76.0 Fatty (change of) liver, not elsewhere classified; K21.9 Gastro-esophageal reflux disease without esophagitis; F41.9 Anxiety disorder, unspecified; F31.9 Bipolar disorder, unspecified; F17.200 Nicotine dependence, unspecified, uncomplicated
CPT/HCPCS: 71046; 74177; 80053; 81003; 83690; 84484; 84702; 85027; 86850; 86900; 86901; 87086; 93005; 99281; 99285; C9113; J0696; J2405; J7030

== ENCOUNTER 2018-01-22 12:04 | Emergency (ER) | payer OTHER ==
[~2018-01-22] VITALS: Ht 170.2 cm; Wt 91.5 kg
[~2018-01-22 12:04] MED LIST changes: +PROTONIX40 MG PO; +ZOFRAN4 MG SL
[2018-01-22 13:02] LABS: HEMATOCRIT 44.5 % (36.0-46.0); HEMOGLOBIN 15.1 G/DL (11.9-15.5); MCH 30.1 PG (29.0-34.0); MCHC 33.9 G/DL (30.0-36.0); MCV 88.8 FL (83-99); PLATELET COUNT 315 K/uL (156-360); RBC DIS.WIDTH-CV 14.6 % (11.8-14.6); RBC DIS.WIDTH-SD 46.7 % (39-53); RED BLOOD COUNT 5.01 M/uL (3.80-5.20); WHITE BLOOD COUNT 13.5 K/uL (4.1-10.2)
[2018-01-22 13:12] LABS: ALBUMIN 4.5 g/dL (3.2-4.8); CHLORIDE 108 mEq/L (99-109); SODIUM 141 mEq/L (136-147)
[2018-01-22 13:14] LABS: GLUCOSE 127 mg/dL (70-99)
[2018-01-22 13:16] LABS: TOTAL BILIRUBIN 0.5 mg/dL (0.0-1.0)
[2018-01-22 13:18] LABS: ALKALINE PHOSPHATASE 57 IU/L (3-129); CREATININE 0.8 mg/dL (0.6-1.3); GFR ESTIMATE (CALCULATED) > 59 mL/min/
[2018-01-22 13:19] LABS: UREA NITROGEN (BUN) 18 mg/dL (9-23)
[2018-01-22 13:20] LABS: AST (GOT) 19 IU/L (2-34)
[2018-01-22 13:21] LABS: ALT (GPT) 20 IU/L (3-49)
[2018-01-22 13:27] LABS: QUANTITATIVE HCG < 4.0 MIU/ML
[2018-01-22 16:45] LABS: LIPASE 33 U/L (1.0-51.0)
[2018-01-22 18:18] LABS: APPEARANCE SL.HAZY ((CLEAR)); BILIRUBIN NEGATIVE; BLOOD LARGE; COLOR YELLOW ((YELLOW)); GLUCOSE (STRIP) NEGATIVE; KETONES 20; LEUKOCYTES SMALL; NITRITE NEGATIVE; PROTEIN (STRIP) 30; SPECIFIC GRAVITY 1.021 (1.000-1.030); UROBILINOGEN 0.2 MG/DL (0.2-1.0)
[2018-01-22 18:30] LABS: BACTERIA NONE SEEN /HPF; EPITHELIAL CELLS RARE /HPF; MUCUS TRACE /LPF; RED BLOOD CELLS TNTC /HPF (0-5); UCUL ADDED? YES; WHITE BLOOD CELLS 15-20 /HPF (0-5)
[2018-01-22] MEDS ORDERED: ZOFRAN4 MG PO (20:50)
[2018-01-22 21:02] VITALS: BP 119/84
== END 2018-01-22 21:02 | disposition home or self-care (01) ==
LOC: EME 12:04
DX: R10.13 Epigastric pain (principal); R11.2 Nausea with vomiting, unspecified; F17.200 Nicotine dependence, unspecified, uncomplicated; K21.9 Gastro-esophageal reflux disease without esophagitis; F32.9 Major depressive disorder, single episode, unspecified; F41.9 Anxiety disorder, unspecified
CPT/HCPCS: 74177; 80053; 81003; 83690; 84702; 85027; 87086; 99281; 99285; J1630; J2405; J2765; J3010; J7030

== ENCOUNTER 2018-02-11 09:16 | Emergency (ER) | payer OTHER ==
[~2018-02-11] VITALS: Ht 170.2 cm; Wt 91.6 kg
[2018-02-11 09:55] LABS: HEMATOCRIT 45.7 % (36.0-46.0); HEMOGLOBIN 15.4 G/DL (11.9-15.5); MCH 29.9 PG (29.0-34.0); MCHC 33.7 G/DL (30.0-36.0); MCV 88.7 FL (83-99); PLATELET COUNT 284 K/uL (156-360); RBC DIS.WIDTH-CV 14.8 % (11.8-14.6); RBC DIS.WIDTH-SD 48.5 % (39-53); RED BLOOD COUNT 5.15 M/uL (3.80-5.20)
[2018-02-11 10:58] LABS: ALBUMIN 4.2 g/dL (3.2-4.8); CHLORIDE 108 mEq/L (99-109); POTASSIUM 3.8 mEq/L (3.7-5.4); SODIUM 142 mEq/L (136-147)
[2018-02-11 11:00] LABS: GLUCOSE 125 mg/dL (70-99); TOTAL PROTEIN 7.5 g/dL (6.4-8.3)
[2018-02-11 11:02] LABS: TOTAL BILIRUBIN 0.5 mg/dL (0.0-1.0)
[2018-02-11 11:04] LABS: ALKALINE PHOSPHATASE 55 IU/L (3-129); CREATININE 0.7 mg/dL (0.6-1.3); GFR ESTIMATE (CALCULATED) > 59 mL/min/
[2018-02-11 11:05] LABS: UREA NITROGEN (BUN) 11 mg/dL (9-23)
[2018-02-11 11:06] LABS: AST (GOT) 21 IU/L (2-34)
[2018-02-11 11:07] LABS: ALT (GPT) 21 IU/L (3-49); LIPASE 24 U/L (1.0-51.0)
[2018-02-11 11:16] LABS: QUANTITATIVE HCG < 4.0 MIU/ML
[2018-02-11] MEDS ORDERED: PHENERGAN25 MG PR (12:13)
[2018-02-11 12:37] LABS: APPEARANCE SL.HAZY ((CLEAR)); BILIRUBIN NEGATIVE; BLOOD MODERATE; COLOR YELLOW ((YELLOW)); GLUCOSE (STRIP) NEGATIVE; KETONES 20; LEUKOCYTES TRACE; NITRITE NEGATIVE; PROTEIN (STRIP) NEGATIVE; SPECIFIC GRAVITY 1.018 (1.000-1.030); UROBILINOGEN 0.2 MG/DL (0.2-1.0)
[2018-02-11 12:40] LABS: BACTERIA 1+ /HPF; EPITHELIAL CELLS RARE /HPF; MUCUS TRACE /LPF; WHITE BLOOD CELLS 0-5 /HPF (0-5)
[2018-02-11 13:00] LABS: AMPHETAMINE NEGATIVE (500 ng/mL); BARBITURATES NEGATIVE (200 ng/mL); BENZODIAZEPINES NEGATIVE (150 ng/mL); BUPRENORPHINE NEGATIVE (10 ng/mL); COCAINE PRESUMPTIVE POSITIVE (150 ng/mL); METHADONE NEGATIVE (200 ng/mL); METHAMPHETAMINE NEGATIVE (500 ng/mL); OPIATES (MORPHINE) NEGATIVE (100 ng/mL); OXYCODONE NEGATIVE (100 ng/mL); PHENCYCLIDINE NEGATIVE (25 ng/mL); PROPOXYPHENE NEGATIVE (300 ng/mL); THC CANNABINOIDS NEGATIVE (50 ng/mL); TRICYCLIC ANTIDEPRESSANTS NEGATIVE (300 ng/mL)
[2018-02-11] MEDS ORDERED: BACTRIM,SEPT1 TABLET PO (13:08)
[2018-02-11 14:44] VITALS: BP 160/100
== END 2018-02-11 14:47 | disposition home or self-care (01) ==
LOC: EME 09:16
PROVIDERS: Nurse Practitioner Family
DX: G43.A0 Cyclical vomiting, in migraine, not intractable (principal); F14.10 Cocaine abuse, uncomplicated; N39.0 Urinary tract infection, site not specified; Z59.0 Homelessness; F12.90 Cannabis use, unspecified, uncomplicated; F32.9 Major depressive disorder, single episode, unspecified; F41.9 Anxiety disorder, unspecified; K21.9 Gastro-esophageal reflux disease without esophagitis; F17.200 Nicotine dependence, unspecified, uncomplicated
CPT/HCPCS: 80053; 81003; 83690; 84702; 84999; 85027; 99281; 99284; J1630; J2405; J2550; J7030

== ENCOUNTER 2018-04-29 18:32 | Emergency (ER) | payer OTHER ==
[~2018-04-29] VITALS: Ht 172.7 cm; Wt 92.2 kg
[2018-04-29 19:13] LABS: HEMATOCRIT 43.8 % (36.0-46.0); HEMOGLOBIN 14.7 G/DL (11.9-15.5); MCH 29.9 PG (29.0-34.0); MCHC 33.6 G/DL (30.0-36.0); MCV 89.2 FL (83-99); PLATELET COUNT 322 K/uL (156-360); RBC DIS.WIDTH-CV 14.6 % (11.8-14.6); RBC DIS.WIDTH-SD 46.9 % (39-53); RED BLOOD COUNT 4.91 M/uL (3.80-5.20); WHITE BLOOD COUNT 13.3 K/uL (4.1-10.2)
[2018-04-29 19:23] LABS: ALBUMIN 4.4 g/dL (3.2-4.8); CHLORIDE 108 mEq/L (99-109); POTASSIUM 4.2 mEq/L (3.7-5.4); SODIUM 141 mEq/L (136-147)
[2018-04-29 19:25] LABS: GLUCOSE 140 mg/dL (70-99)
[2018-04-29 19:26] LABS: TOTAL PROTEIN 7.7 g/dL (6.4-8.3)
[2018-04-29 19:27] LABS: TOTAL BILIRUBIN 0.5 mg/dL (0.0-1.0)
[2018-04-29 19:29] LABS: ALKALINE PHOSPHATASE 57 IU/L (3-129); CREATININE 0.8 mg/dL (0.6-1.3); GFR ESTIMATE (CALCULATED) > 59 mL/min/
[2018-04-29 19:30] LABS: UREA NITROGEN (BUN) 10 mg/dL (9-23)
[2018-04-29 19:31] LABS: AST (GOT) 20 IU/L (2-34)
[2018-04-29 19:32] LABS: ALT (GPT) 20 IU/L (3-49)
[2018-04-29 19:33] LABS: LIPASE 26 U/L (1.0-51.0)
[2018-04-29 19:38] LABS: QUANTITATIVE HCG < 4.0 MIU/ML
[2018-04-29 20:57] LABS: APPEARANCE SL.HAZY ((CLEAR)); BILIRUBIN NEGATIVE; BLOOD MODERATE; COLOR YELLOW ((YELLOW)); GLUCOSE (STRIP) 50; KETONES 20; LEUKOCYTES TRACE; NITRITE NEGATIVE; PROTEIN (STRIP) NEGATIVE; SPECIFIC GRAVITY 1.018 (1.000-1.030); UROBILINOGEN 0.2 MG/DL (0.2-1.0)
[2018-04-29 21:12] LABS: AMPHETAMINE NEGATIVE (500 ng/mL); BACTERIA NONE SEEN /HPF; BARBITURATES NEGATIVE (200 ng/mL); BENZODIAZEPINES NEGATIVE (150 ng/mL); BUPRENORPHINE NEGATIVE (10 ng/mL); COCAINE PRESUMPTIVE POSITIVE (150 ng/mL); EPITHELIAL CELLS 1+ /HPF; METHADONE NEGATIVE (200 ng/mL); METHAMPHETAMINE NEGATIVE (500 ng/mL); MUCUS 2+ /LPF; OPIATES (MORPHINE) NEGATIVE (100 ng/mL); OXYCODONE NEGATIVE (100 ng/mL); PHENCYCLIDINE NEGATIVE (25 ng/mL); PROPOXYPHENE NEGATIVE (300 ng/mL); THC CANNABINOIDS NEGATIVE (50 ng/mL); TRICYCLIC ANTIDEPRESSANTS NEGATIVE (300 ng/mL); UCUL ADDED? NO; WHITE BLOOD CELLS 0-5 /HPF (0-5)
[2018-04-29] MEDS ORDERED: ZOFRAN4 MG PO (21:31)
[2018-04-29 21:48] VITALS: BP 144/114
== END 2018-04-29 21:49 | disposition home or self-care (01) ==
LOC: EME 18:32
PROVIDERS: Emergency Medicine
DX: R11.10 Vomiting, unspecified (principal); R10.13 Epigastric pain; K21.9 Gastro-esophageal reflux disease without esophagitis; F41.9 Anxiety disorder, unspecified; F32.9 Major depressive disorder, single episode, unspecified; F31.9 Bipolar disorder, unspecified; F17.200 Nicotine dependence, unspecified, uncomplicated; Z88.8 Allergy status to other drugs, medicaments and biological substances
CPT/HCPCS: 80053; 81003; 83690; 84702; 84999; 85027; 99281; 99285; J1200; J1630; J2405; J7030